=== PATIENT | female | born 1935 | race Caucasian/White ===

== ENCOUNTER → 2016-08-30 | Outpatient (CLI) | payer MEDICARE, OTHER ==
[2016-08-06 11:00] VITALS: BP 151/88
[~2016-08-30] MED LIST: AMIT50TA PO; HYDR-2762 PO; IOHEXOL 180 MG/ML 10 ML VIAL. ONE; MELO-156 PO; POLY17PO5 PO; TAMO20TA PO; methylPREDNISolone ACETATE 40 MG/ML VIAL. ONE; methylPREDNISolone ACETATE 80 MG/ML VIAL. ONE
--- NOTE | 2016-08-30 23:59 | PAIN ---
DATE OF SERVICE: 08/30/2016 PROGRESS NOTE DIAGNOSES: 1. Lumbar radiculopathy with lumbar spinal stenosis, lumbar degenerative disk disease. 2. Left greater trochanteric bursitis. HISTORY OF PRESENT ILLNESS: The patient is an 80-year-old female who returns for followup status post lumbar epidural steroid injections x 3, most recently seen on 06/01/2016. The patient did very well after the injections, reports that her back is doing very well and near 100% improvement with this, but her chief complaint today is pain in the left hip and left lateral leg. The patient reports it is worse with standing and walking, but better with sitting down or lying down, does not awaken her from sleep, does not affect her ability to increase her activity to a significant extent, but becoming her more and more tender on the lateral aspect of the hip on the left side. The patient reports as a 7-8 on a scale of 10 depending on how far she is walking or how much movement doing, but her back again is doing very well. The patient reports no new motor or sensory deficits, no new bowel or bladder incontinence or other complaints. PHYSICAL EXAMINATION: VITAL SIGNS: Today, the patient's blood pressure is 156/91, pulse 70, respirations 18, temperature 98.0 degrees Fahrenheit, weight is 168 pounds. GENERAL: The patient is awake, alert, oriented, appropriate, very pleasant demeanor. HEENT: Shows normocephalic, atraumatic. Extraocular movements are intact and symmetrical. Oral cavity shows mucous membranes moist and pink. NECK: Shows anterior throat supple without palpable lymphadenopathy noted. Swallow reflex is symmetrical. Neck shows full rotation and motion of the cervical spine without difficulty or tenderness. CHEST: Shows normal with inspection. Breath sounds are clear to auscultation bilaterally. HEART: Shows S1 and S2 clear. ABDOMEN: Soft, nontender, nondistended. No palpable organomegaly is noted. No rebound or guarding demonstrated. BACK: The patient's back shows spine grossly in midline. Lumbar paraspinous muscle shows some mild tenderness to palpation, but only very mild, very diffuse in the low lumbar distribution with deep palpation. The patient has full rotation and motion of the lumbar spine, both laterally as well as extension and flexion without difficulty. EXTREMITIES: Lower extremities show deep tendon reflexes 1+ in the patellar and tendo calcaneus tendons, are equal. Motor exam is strong with 5/5 dorsiflexion, extension and equal. Over the patient's left greater trochanter, it shows significant tenderness with pressure and palpation with radiation slightly into the lateral upper thigh, right side is nontender. The patient shows good rotation and motion of the hip with no tenderness with weightbearing even all on her left leg with abduction of the hip at greater than about 20 degrees, significant pain over the left greater trochanter as well. Right side is nontender. PLAN: Options were discussed with the patient. The patient's old chart was reviewed as her current medication regimen and updated. Current review of systems updated today as well. She seems to have significant pain over the left greater trochanter representing some left greater trochanteric bursitis. We discussed options such as injection of the left greater trochanteric bursa and conservative measures. She would like to try the most conservative measure. We will try Medrol Dosepak with instructions, side effects to be aware of discussed with the medication. If not significantly improved after this, we did discuss a left greater trochanteric bursa injection and she is interested in this if not improved after the medication regimen. The patient will follow up in approximately 2 weeks or sooner if necessary. We have given instruction as well as side effects to be aware of with the medication. ASHLEY CHRISTIAN MD DR: DMITRI/damaris JOB#: [id number] / [id number]
== END | disposition home or self-care (01) ==
LOC: PNCL 10:29
PROVIDERS: ATTEND Anesthesiology
DX: M51.16 Intervertebral disc disorders with radiculopathy, lumbar region (principal); M48.06 Spinal stenosis, lumbar region; M70.62 Trochanteric bursitis, left hip
CPT/HCPCS: G0463; J1030; J1040

== ENCOUNTER → 2016-11-26 | Outpatient (CLI) | payer MEDICARE, OTHER ==
[2016-08-06 11:00] VITALS: BP 151/88
[~2016-11-26] MED LIST changes: +DONE5TAB7 PO
--- NOTE | 2016-11-26 23:58 | PAIN ---
DATE OF SERVICE: 11/26/2016 DIAGNOSES: Lumbar radiculopathy with lumbar degenerative disk disease and lumbar spinal stenosis. HISTORY OF PRESENT ILLNESS: The patient is an 80-year-old female who returns for followup, last seen on 08/30. We had tried a Medrol Dosepak at that time and she was doing very well with her back, but her left hip joint was giving some trouble and ____ cleared up now and she is having more pain across the low back and left posterior gluteus, posterior thigh and into the lower leg on occasion, worse with standing and walking, though she is not doing a lot of this, has not been very active because of the pain recently, has been using a wheelchair when she can and indeed has one with her today. The patient reports she had some constipation and some weakness in lower extremity on the left side, but otherwise doing very well. No new motor or sensory deficits, no new bladder incontinence. The patient reports the pain as 8 or up to 10 on a scale of 10. It is worse with standing and walking, better with sitting and lying down, not been awakening her from sleep at night. PHYSICAL EXAMINATION: VITAL SIGNS: Shows blood pressure 140/____, pulse 83, respirations 18, temperature is 98.2 degrees Fahrenheit, height is 5 feet 2 inches, weight 168 pounds. GENERAL: The patient is awake, alert, oriented, appropriate, very pleasant demeanor. HEENT: Head shows normocephalic, atraumatic. Extraocular movements are intact and symmetrical. Oral cavity, mucous membranes are moist and pink. Dentition is intact. NECK: Shows anterior throat supple without palpable lymphadenopathy noted. Swallow reflex is symmetrical. CHEST: Shows normal on inspection. Breath sounds clear to auscultation bilaterally. HEART: Shows S1 and S2 clear. ABDOMEN: Soft, nontender, nondistended. BACK: Shows spine grossly in the midline. Lumbar paraspinous musculature shows some mild to moderate tenderness with palpation in the lumbar paraspinous musculature bilaterally, but only diffusely without radiation, without specific trigger points or asymmetry. The patient does show good rotational motion of lumbar spine, both laterally as well as extension and flexion without significant difficulty or pain reported. EXTREMITIES: The patient's lower extremities showed deep tendon reflexes at 1+ in the patellar and tendo calcaneus tendons. Motor exam is strong with 5/5 dorsiflexion, extension, quadriceps and hamstring flexion. Options were discussed with the patient. The patient's old chart was reviewed as her current medication regimen updated. Current review of systems updated to date as well. We will proceed with a lumbar epidural steroid injection with fluoroscopic guidance as the first in this series. Risks were again discussed including, but not limited to bleeding, infection, possibility of epidural hematoma, subsequent neurologic compromise, dural puncture, headaches, spinal cord and/or nerve damage, side effects of steroid medication and poor results regarding pain control. The patient understands and wishes to proceed. The patient will return to clinic in approximately 2 weeks for followup, was counseled on return appointment, activity level and side effects to be aware of. DIAGNOSES: Lumbar radiculopathy with lumbar spinal stenosis and lumbar degenerative disk disease. PROCEDURES: Lumbar epidural steroid injection in translaminar approach at the L5-S1 level using C-arm fluoroscopic guidance under sterile prep and drape using local anesthetic. MEDICATIONS INJECTED: 120 mg of Depo-Medrol plus 10 mL of preservative free normal saline and 2 mL Isovue for contrast. CONDITION AT DISCHARGE: Stable. The patient tolerated procedure well, had no complications. ASHLEY CHRISTIAN MD DR: DMITRI/damaris JOB#: [id number] / [id number]
== END | disposition home or self-care (01) ==
LOC: PNCL 10:17
PROVIDERS: ATTEND Anesthesiology
DX: M51.16 Intervertebral disc disorders with radiculopathy, lumbar region (principal); M48.06 Spinal stenosis, lumbar region; E78.00 Pure hypercholesterolemia, unspecified; I10 Essential (primary) hypertension; F41.9 Anxiety disorder, unspecified; F32.9 Major depressive disorder, single episode, unspecified; Z85.3 Personal history of malignant neoplasm of breast
CPT/HCPCS: 62323; J1030; J1040

== ENCOUNTER → 2017-01-24 | Outpatient (CLI) | payer MEDICARE, OTHER ==
[2016-11-28 10:47] VITALS: BP 120/71
[~2017-01-24] MED LIST changes: -MELO-156 PO; +MELO7.5T29 PO; +POLY17PO29 PO; -POLY17PO5 PO
--- NOTE | 2017-01-25 06:35 | PAIN ---
DATE OF SERVICE: 01/24/2017 PROGRESS NOTE FOR PAIN CLINIC DIAGNOSIS: Lumbar radiculopathy with lumbar degenerative disk disease and lumbar spinal stenosis. HISTORY OF PRESENT ILLNESS: The patient is an 81-year-old female who returns for followup status post lumbar epidural steroid injection x 1 on 11/26/2016. The patient reports she did very well with near 100% improvement in her low back and about 50% improvement in her left leg. The patient reports she is doing much better. She still has some pain in the left leg, but much better with increased exercise and activity. She is sleeping well at night, with almost no pain in the back itself. The patient reports she sleeps about 8 hours ____ increasing her activity, standing, walking, which seems to exacerbate the pain to some extent, but she has no difficulty climbing stairs. She uses 2 feet on each step ____ hold onto a rail or to the wall and does not have any difficulty with this. The patient reports the pain as a 7 on a scale of 10 at its worst and 4 currently today. The patient reports no new motor or sensory deficits, no new bowel or bladder incontinence or other complaints. PHYSICAL EXAMINATION: VITAL SIGNS: Today, the patient's blood pressure is 140/76, pulse 67, respirations are 18, temperature is 98.0 degrees Fahrenheit. Height is 5 feet 6 inches, weight is 155 pounds. GENERAL: The patient is awake, alert, oriented, appropriate, has a very pleasant demeanor. HEENT: Shows normocephalic, atraumatic. Extraocular movements are intact and symmetrical. Oral cavity shows mucous membranes moist and pink. Dentition is intact. NECK: Shows anterior throat supple without palpable lymphadenopathy noted. Swallow reflex is symmetrical. CHEST: Shows normal on inspection. Breath sounds are clear to auscultation bilaterally. HEART: Shows S1 and S2 clear. ABDOMEN: Soft, nontender, nondistended. No palpable organomegaly is noted. No rebound or guarding demonstrated. BACK: Shows spine grossly in the midline. Lumbar paraspinous muscle shows some moderate tenderness with palpation, but without radiation. No asymmetry. The patient shows good rotational motion as well as extension and flexion. EXTREMITIES: Lower extremities show deep tendon reflexes 1+ in the patellar and tendo-calcaneus tendons. Motor exam is strong with 5/5 dorsiflexion, extension, quadriceps and hamstring flexion and is symmetrical. PLAN: Options were discussed with the patient and the patient's son who accompanies her to visit today. The patient's old chart was reviewed as was her current medication regimen and updated. Current review of systems updated today as well. We will proceed with a second in the series of lumbar epidural steroid injection with fluoroscopic guidance. Risks were again discussed including, but not limited to bleeding, infection, possibility of epidural hematoma, subsequent neurological compromise, dural puncture, headaches, spinal cord and/or nerve damage, side effects of steroid medication and poor results regarding pain control. The patient understands and wishes to proceed. The patient will return to the clinic in approximately 2 weeks for followup, was counseled as to her return appointment, activity level and side effects to be aware of. DIAGNOSIS: Lumbar radiculopathy with lumbar spinal stenosis and lumbar degenerative disk disease. PROCEDURE: Lumbar epidural steroid injection in translaminar approach at L5-S1 level using C-arm fluoroscopic guidance under sterile prep and drape using local anesthetic. MEDICATIONS INJECTED: 120 mg Depo-Medrol plus 10 mL of preservative-free normal saline and 2 mL of Isovue for contrast. CONDITION ON DISCHARGE: Stable. The patient tolerated the procedure well, had no complications. ASHLEY CHRISTIAN MD DR: DMITRI/nts JOB#: [id number] / [id number]
== END | disposition home or self-care (01) ==
LOC: PNCL 09:42
PROVIDERS: ATTEND Anesthesiology
DX: M51.16 Intervertebral disc disorders with radiculopathy, lumbar region (principal); M48.06 Spinal stenosis, lumbar region; E78.00 Pure hypercholesterolemia, unspecified; I10 Essential (primary) hypertension; I25.10 Atherosclerotic heart disease of native coronary artery without angina pectoris; M19.90 Unspecified osteoarthritis, unspecified site; F41.9 Anxiety disorder, unspecified; F32.9 Major depressive disorder, single episode, unspecified; Z85.3 Personal history of malignant neoplasm of breast; Z86.69 Personal history of other diseases of the nervous system and sense organs; Z87.39 Personal history of other diseases of the musculoskeletal system and connective tissue
CPT/HCPCS: 62323; J1030; J1040

== ENCOUNTER → 2017-05-13 | Outpatient (CLI) | payer MEDICARE, OTHER ==
[2016-11-28 10:47] VITALS: BP 120/71
[~2017-05-13] MED LIST changes: +BUPIVACAINE MPF 0.25% 10 ML VIAL. ONE; -methylPREDNISolone ACETATE 80 MG/ML VIAL. ONE
--- NOTE | 2017-05-13 09:47 | PAIN ---
DATE OF SERVICE: 05/13/2017 DIAGNOSES: 1. Lumbar radiculopathy with lumbar degenerative disk disease, lumbar spinal stenosis. 2. Left hip joint pain with primary osteoarthritis, left hip joint. HISTORY OF PRESENT ILLNESS: The patient is an 81-year-old female who returns for followup status post lumbar epidural steroid injection x 2, last seen on 01/24/2017. The patient did very well with near 80% improvement and her main complaint is her left hip; however, she is scheduled to have hip joint replacement in about 3 weeks, but the pain is becoming so unbearable that she is wishing to have some treatment for that today so that she can get through to her surgery and she is worried about her right hip that she is standing on her right side all the time because of the pain on the left side and she is afraid she is going to damage her right side. The patient's x-rays were with significant degenerative changes to severe extent in the left intra-articular joint of the hip. The patient reports otherwise doing well, her back is doing quite well. She has been increasing her activity as best she can and with her hip, sleeping well at night without difficulty with her back. The patient reports the pain in the hip as a 9 on a scale of 10 and 7 at its least. It is aching and dull, sharp shooting pain, occasionally with dull aching pain radiating to the left groin, worse with standing on the left leg, primarily such as climbing stairs, putting all of her weight on one side, stepping up on a curb, etc. The patient reports no new motor or sensory deficits. No new bowel or bladder incontinence or other complaints. PHYSICAL EXAMINATION: VITAL SIGNS: Today, the patient's blood pressure is 140/87, pulse 78, respirations 20, temperature 97.7 degrees Fahrenheit, height is 5 feet 2 inches, weight is 142 pounds. GENERAL: The patient is awake, alert, oriented, appropriate, very pleasant demeanor. HEENT: Shows normocephalic, atraumatic. Extraocular movements are intact and symmetrical. Oral cavity shows mucous membranes moist and pink. Dentition is intact. NECK: Shows anterior throat supple. CHEST: Shows normal on inspection. Breath sounds are clear to auscultation bilaterally. HEART: Shows S1 and S2 clear. ABDOMEN: Soft, nontender, nondistended. BACK: Shows spine grossly in the midline. Lumbar paraspinous muscle shows some moderate tenderness with palpation, but only diffusely and only in the lower lumbar distribution. The patient has good rotation and motion of lumbar spine, both laterally as well as extension and flexion without difficulty. EXTREMITIES: Lower extremities show deep tendon reflexes 1+ in the patellar and tendo calcaneus tendon. Motor exam is strong with 5/5 dorsiflexion and extension. The patient's left hip shows some mild tenderness with palpation over the left greater trochanter, but very tender with external rotation with a positive Elia sign on the left and the right is negative. Options were discussed with the patient. The patient's old chart was reviewed as her current medication regimen and updated. Current review of systems is updated today as well and we will proceed with a left intra-articular hip joint injection today with fluoroscopic guidance. Risks were again discussed including, but not limited to bleeding, infection, possibility of intravascular injection sequelae, spread of local anesthetic and numbness, side effects of steroid medications, exposure to fluoroscopy and poor results regarding pain control. The patient understands and wishes to proceed. The patient will return to the clinic in approximately 4 weeks or as necessary. Again, the patient is scheduled to have total hip replacement on the 05/30/2017 or have her follow up with her orthopedic surgeon as scheduled. DIAGNOSIS: Left primary osteoarthritis, hip joint. PROCEDURE: Left hip injection intra-articular joint using local anesthetic under sterile prep and drape using C-arm fluoroscopic guidance. MEDICATION INJECTED: A total of 3 mL of 0.25% bupivacaine and 40 mg Depo-Medrol plus ____ of Isovue for contrast. CONDITION AT DISCHARGE: Stable. The patient tolerated procedure well, had no complications. ASHLEY CHRISTIAN MD DR: DMITRI/damaris JOB#: [id number] / [id number]
== END | disposition home or self-care (01) ==
LOC: PNCL 08:16
PROVIDERS: ATTEND Anesthesiology
DX: M16.12 Unilateral primary osteoarthritis, left hip (principal); M51.16 Intervertebral disc disorders with radiculopathy, lumbar region; F41.9 Anxiety disorder, unspecified; I25.10 Atherosclerotic heart disease of native coronary artery without angina pectoris; I10 Essential (primary) hypertension; F32.9 Major depressive disorder, single episode, unspecified; Z85.3 Personal history of malignant neoplasm of breast; E78.00 Pure hypercholesterolemia, unspecified; Z98.1 Arthrodesis status; Z98.890 Other specified postprocedural states
CPT/HCPCS: 20610; J1030; J3490

== ENCOUNTER → 2019-02-15 | Outpatient (CLI) | payer MEDICARE, OTHER ==
[2016-11-28 10:47] VITALS: BP 120/71
[~2019-02-15] MED LIST changes: -BUPIVACAINE MPF 0.25% 10 ML VIAL. ONE; -HYDR-2762 PO; +HYDR-2765 PO; -IOHEXOL 180 MG/ML 10 ML VIAL. ONE; -methylPREDNISolone ACETATE 40 MG/ML VIAL. ONE
--- NOTE | 2019-02-15 14:57 | KCIC ---
MRI Lumbar Spine without contrast History: Lumbar stenosis, persistent right low back pain getting worse Technique: Multiplanar, multi sequential noncontrast MR imaging was performed of the lumbar spine. Comparison: January 14, 2016 Findings: Lumbar vertebral body stature is unchanged. There is again mild edema of the left L5 pedicle extending to the facet articular process most likely reactive/degenerative in etiology. There is advanced degenerative disc disease variably L2-3 through L4-5 and to a somewhat lesser degree at L1-L2, also degenerative disc disease of visualized inferior thoracic levels greatest at T11-12 as seen previously. Conus terminates at T12-L1. There is mild dextroscoliosis centered near L3-4. There is a small T1 and T2 hyperintense lesion of the visualized right kidney about 0.9 cm overall similar in size. T11-12: There is again broad protrusion greatest centrally and in the right lateral recess to about 4 to 5 mm AP, indentation upon the ventral thecal sac with overall mild to moderate spinal stenosis and contact of the ventral cord overall similar. There is mild facet degenerative change. There is minimal narrowing of the right neural foramen. T12-L1: There is again very minimal disc osteophyte complex and bulge without significant spinal stenosis. Neural foramina are adequate. L1-L2: There is again mild prominence of posterior epidural fat centrally, mild to moderate facet degenerative change and buckling of the ligamentum flavum, and bulge/broad protrusion of to about 4 mm AP. There is again indentation upon the ventral thecal sac somewhat greater in the left lateral recess. There is again moderate narrowing of the far left lateral recess, mild narrowing of the central canal and far right lateral recess. There is mild left and [id number] right neural foramina compromise, bulge near the undersurfaces of proximal extraforaminal L1 nerve roots bilaterally greater on the left without significant displacement. There is buckling of the nerve roots above and below this level. L2-L3: There is again moderate to severe facet degenerative change greater on the left and buckling of the ligamentum flavum. There is disc osteophyte complex and superimposed bulge/broad protrusion. There is indentation upon the ventral thecal sac somewhat greater in the left lateral recess. There is severe spinal stenosis somewhat increased, complete effacement of subarachnoid space, lateral recess stenosis bilaterally with impingement of the descending L3 nerve roots. There is also now component of synovial cyst more centrally in the spinal canal posteriorly better appreciated on the sagittal images images 9 about 1.4 cm CC by about 0.3 cm AP by 0.3 cm transverse, inferior extent to the mid one half level of L3. There is severe narrowing of the left neural foramen in part by disc osteophyte complex and facet with impingement of the exiting left L2 nerve root extending to proximal extraforaminal region. There is minimal narrowing of the right neural foramen. L3-L4: There is again disc osteophyte complex and superimposed broad prominent protrusion/contained extrusion. There is again [id number] buckling of the ligamentum flavum and moderate facet hypertrophic change. There is mild prominence of posterior epidural fat. Combination of findings again results in severe spinal stenosis with near complete effacement of subarachnoid space, severe lateral recess stenosis bilaterally with impingement of the descending L4 nerve roots bilaterally. There is fairly severe narrowing of the left neural foramen greater distally in part by disc osteophyte complex with impingement of the exiting left L3 nerve root extending to the proximal extraforaminal region unchanged. There is mild narrowing of the right neural foramen. L4-L5: There is again disc osteophyte complex and superimposed bulge. There is again fairly severe right greater than left facet degenerative change and moderate buckling of the ligamentum flavum. Overall degree of spinal stenosis has decreased although there is mild to moderate narrowing of the far left lateral recess, to a somewhat lesser degree on the right, mild narrowing of the transverse dimension of the central canal. There is again moderate to severe narrowing of the left neural foramen greater distally with contact of the undersurface exiting left L4 nerve root greater distally by disc osteophyte complex and bulge, also severe narrowing on the right with impingement exiting right L4 nerve root in the distal neural foramen and extraforaminal region by disc osteophyte complex and facet unchanged. There is again degree of clumping of nerve roots. L5-S1: There is again disc osteophyte complex and bulge. There is again fairly severe facet degenerative change, fluid in the facet articulations. There is buckling of the ligamentum flavum. There is somewhat increased moderate to severe narrowing of the far lateral recesses bilaterally, mild increased narrowing of the central canal. Previously there was some definition of the descending nerve roots which is no longer seen, apparently peripherally displaced in the thecal sac. There is again severe narrowing of the left neural foramen now in part by small synovial cyst about 0.4 cm AP, impingement of the the exiting left L5 nerve root. There is also severe narrowing of the right neural foramen with impingement of the exiting right L5 nerve root, part by a synovial cyst distal aspect of the right neural foramen and proximal extraforaminal region about 0.6 now 0.7 cm which is larger in interval. Impression: 1. Comparing with the 2016 exam, degree of spinal stenosis L4-5 has somewhat decreased although increased lateral recess stenosis bilaterally at L5-S1 and again severe spinal stenosis L2-3 and L3-4, also left greater than right lateral recess stenosis at L1-L2 and mild to moderate spinal stenosis T11-12. Severe spinal stenosis at L2-3 is somewhat greater as there is now synovial cyst in the posterior central aspect of the spinal canal. 2. There is multilevel advanced lumbar degenerative disc disease greatest L2-3 through L4-5, multilevel spondylosis. 3. There is multilevel significant lumbar neural foramina compromise with multilevel impingement of the exiting nerve roots. There is severe narrowing bilaterally at L5-S1 in part by synovial cysts with contact of the exiting L5 nerve roots. There is also significant neural foramina compromise bilaterally at L4-L5 and on the left at L3-4 and L2-3. 4. 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 5. T1 and T2 hyperintense lesion of the visualized right kidney is similar in size, more likely a complex cyst. Electronically signed by: Crow Killian MD (02/15/2019 2:54 PM) [email or web address]
== END | disposition home or self-care (01) ==
LOC: KCIC MRI 12:53
PROVIDERS: ATTEND Family Medicine
DX: M48.07 Spinal stenosis, lumbosacral region (principal); M48.04 Spinal stenosis, thoracic region; M51.36 Other intervertebral disc degeneration, lumbar region; M47.816 Spondylosis without myelopathy or radiculopathy, lumbar region; M51.25 Other intervertebral disc displacement, thoracolumbar region; M71.38 Other bursal cyst, other site; M25.78 Osteophyte, vertebrae; N28.89 Other specified disorders of kidney and ureter
CPT/HCPCS: 72148

== ENCOUNTER → 2019-03-12 | Outpatient (CLI) | payer MEDICARE, OTHER ==
[2016-11-28 10:47] VITALS: BP 120/71
[~2019-03-12] MED LIST changes: +IOHEXOL 180 MG/ML 10 ML VIAL. ONE; +LISI2.5T PO; +methylPREDNISolone ACETATE 40 MG/ML VIAL. ONE; +methylPREDNISolone ACETATE 80 MG/ML VIAL. ONE
--- NOTE | 2019-03-12 12:11 | PAIN ---
DATE OF SERVICE: 03/12/2019 PROGRESS NOTE FOR PAIN CLINIC DIAGNOSES: Lumbar radiculopathy with lumbar degenerative disk disease and lumbar spinal stenosis. HISTORY OF PRESENT ILLNESS: The patient is an 83-year-old female who returns for followup status post lumbar epidural steroid injections, last seen 05/2017. The patient did very well with pain in her low back and right leg, but is returning now in the low back, right hip, right posterior gluteus and posterior thigh with pain in the left back as well as the hips, mostly in the right side. The patient reports it is a 5 on a scale of 10 at its worst over the past week, 4 at its least and is a 5 on average and is a 5 today. The patient reports it is aching, sharp, dull, alternating in the low back itself without significant radiation, worse with changing positions, better with sitting for prolonged periods or lying down, does not awaken her from sleep at night. The patient reports it is better with walking initially, but after about 15 minutes, she does need to sit and rest because of the pain. She is using a walker to ambulate at essentially all times. The patient reports the pain is aching, sharp and dull in the low back and right lower extremity. The patient reports no new motor or sensory deficits, no new bowel or bladder incontinence or other complaints. PHYSICAL EXAMINATION: VITAL SIGNS: The patient's blood pressure 134/71, pulse 81, respirations 18, temperature 98.6 degrees Fahrenheit, height is 5 feet 2 inches, weight is 163 pounds. GENERAL: The patient is awake, alert, oriented, appropriate, very pleasant demeanor. HEENT: Shows normocephalic, atraumatic. Extraocular movements are intact and symmetrical. Oral cavity: Mucous membranes moist and pink. Dentition is intact. NECK: Shows anterior throat supple without palpable lymphadenopathy noted. Swallow reflex symmetrical. CHEST: Shows normal on inspection. Breath sounds clear to auscultation bilaterally. HEART: Shows S1, S2 clear. No murmurs auscultated. ABDOMEN: Soft, nontender, nondistended. BACK: Shows spine grossly in the midline, slight exaggerated thoracic kyphosis, some minor flattening of lumbar lordotic curvature. Lumbar paraspinous muscle shows symmetrical on inspection, on palpation shows some moderate tenderness diffusely bilaterally going diffusely without radiation. The patient has good rotational motion of lumbar spine without significant increase in pain. EXTREMITIES: Lower extremities show deep tendon reflexes at 1+ in the patella and tendo calcaneus tendons. Motor exam is strong with 5/5 dorsiflexion, extension and equal. Peripheral pulses are 1+ posterior tibia. No peripheral edema is noted. 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 PLAN: Options were discussed with the patient. The patient's old chart was reviewed as her current medication regimen updated. Current review of systems updated today as well. We will proceed with lumbar epidural steroid. She has done very well with these in the past. Risks were again discussed including, but not limited to bleeding, infection, possibility of epidural hematoma, subsequent neurologic compromise, dural puncture, headaches, spinal cord and/or nerve damage, side effects of steroid medication and poor results regarding pain control. The patient understands and wished to proceed. The patient will return to clinic in approximately 2 weeks for followup. She was counseled as to return appointment, activity level and side effects to be aware of. DIAGNOSES: Lumbar radiculopathy with lumbar degenerative disk disease, lumbar spinal stenosis. PROCEDURE: Lumbar epidural steroid injection, translaminar approach L5-S1 level using C-arm fluoroscopic guidance under sterile prep and drape using local anesthetic. MEDICATION INJECTED: A total of 120 mg Depo-Medrol plus 10 mL of preservative-free normal saline and 2 mL of contrast. CONDITION AT DISCHARGE: Stable. The patient tolerated the procedure well, had no complications. ASHLEY CHRISTIAN MD DR: DMITRI/damaris JOB#: [id number] / [id number]
== END ==
LOC: PNCL 10:19
PROVIDERS: ATTEND Anesthesiology
DX: M51.16 Intervertebral disc disorders with radiculopathy, lumbar region (principal); M48.061 Spinal stenosis, lumbar region without neurogenic claudication
CPT/HCPCS: 62323; J1030; J1040; Q9965

== ENCOUNTER → 2019-03-30 | Outpatient (CLI) | payer MEDICARE, OTHER ==
[2016-11-28 10:47] VITALS: BP 120/71
[~2019-03-30] MED LIST changes: -IOHEXOL 180 MG/ML 10 ML VIAL. ONE; -methylPREDNISolone ACETATE 40 MG/ML VIAL. ONE; -methylPREDNISolone ACETATE 80 MG/ML VIAL. ONE
--- NOTE | 2019-03-30 14:19 | CARD ---
MR#: [id number] Date of Study: 03/30/2019 Ordering Physician: MANULE SEAY, Referring Physician: MANUEL SEAY, Tech: Rachelle Madden [facility] APPROVED REPORT EXAM: Two-dimensional and M-mode echocardiogram with Doppler and color Doppler. Other Information Quality : AverageHR: 82bpm Rhythm : NSR INDICATION Murmur 2D DIMENSIONS RVDd2.8 (2.9-3.5cm)Left Atrium(2D)3.0 (1.6-4.0cm) IVSd1.2 (0.7-1.1cm)Aortic Root(2D)3.2 (2.0-3.7cm) LVDd3.6 (3.9-5.9cm)LVOT Diameter2.0 (1.8-2.4cm) PWd1.2 (0.7-1.1cm)LVDs2.4 (2.5-4.0cm) FS (%) 32.1 %SV33.1 ml LVEF(%)61.2 (>50%) Aortic Valve AoV Peak Steven.110.3cm/sAoV VTI19.4cm AO Peak GR.4.9mmHgLVOT Peak Steven.87.4cm/s AO Mean GR.2mmHgAVA (VMAX)2.50cm2 NEVILLE (VTI)2.50cm2 Mitral Valve MV E Cumowzgt30.6cm/sMV DECEL [id number] MV A Ktlnstni929.4cm/sE/A Ratio0.8 Pulmonary Valve PV Peak Bhzpansv54.9cm/s Tricuspid Valve TR P. [id number]/sRAP [id number] TR Peak Gr.42hkVvHIIR36haGp LEFT VENTRICLE The left ventricle is normal size. There is mild concentric left ventricular hypertrophy. The left ve ntricular systolic function is normal and the ejection fraction is within normal range. The Ejection Fraction is 60-65%. There is normal LV segmental wall motion. Transmitral Doppler flow pattern is Gra de I-abnormal relaxation pattern. RIGHT VENTRICLE The right ventricle is normal size. There is normal right ventricular wall thickness. The right ventr icular systolic function is normal. ATRIA The left atrium is moderately dilated. Likely reverberation artifact noted. The right atrium size is normal. The interatrial septum is intact with no evidence for an atrial septal defect or patent luzmaria en ovale as noted on 2-D or Doppler imaging. AORTIC VALVE The aortic valve is trileaflet. The aortic valve is mildly calcified. Doppler and Color Flow revealed no significant aortic regurgitation. There is no significant aortic valvular stenosis. There is no a ortic valvular vegetation. MITRAL VALVE Mitral annular calcification is mild to moderate. There is no evidence of mitral valve prolapse. Ther e is no mitral valve stenosis. Doppler and Color-flow revealed trace mitral regurgitation. TRICUSPID VALVE The tricuspid valve is normal in structure and function. Doppler and Color Flow revealed moderate tri cuspid regurgitation. There is mild pulmonary hypertension. The PA pressure was estimated at 38 mmHg. There is no tricuspid valve prolapse or vegetation. There is no tricuspid valve stenosis. PULMONIC VALVE The pulmonic valve is not well visualized. GREAT VESSELS The aortic root is normal in size. The ascending aorta is normal in size. The IVC is normal in size a nd collapses >50% with inspiration. PERICARDIAL EFFUSION There is no evidence of significant pericardial effusion. Critical Notification Critical Value: No <Conclusion> The left ventricular systolic function is normal and the ejection fraction is within normal range. Th e Ejection Fraction is 60-65%. There is normal LV segmental wall motion. The left atrium is moderately dilated. Likely reverberation artifact noted. Signed by : Florin Elliott, Electronically Approved : 03/30/2019 14:18:58
== END | disposition home or self-care (01) ==
LOC: ECHO 13:08
PROVIDERS: ATTEND Internal Medicine Cardiovascular Disease
DX: I08.3 Combined rheumatic disorders of mitral, aortic and tricuspid valves (principal); I27.20 Pulmonary hypertension, unspecified
CPT/HCPCS: 93306